=== PATIENT | male | born 2000 | race African-American/Black ===

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

== ENCOUNTER 2020-03-25 20:05 | Emergency (ER) | payer MEDICAID ==
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
[2020-03-25] MEDS ORDERED: HYDROCODONE/ACETAMINOPHEN 5-325 MG TABLET PO ONE (21:30)
[2020-03-25] MEDS ORDERED: LIDOCAINE 1%/EPINEPHRINE INJ 20 ML VIAL INJ ONE (21:30)
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
[2020-03-25] MEDS ORDERED: HYDROCODONE/ACETAMINOPHEN 5-325 MG (6 TAB/ER DISP) PO PRN (23:48)
[2020-03-26 00:18] VITALS: BP 144/100
== END 2020-03-26 00:18 | disposition home or self-care (01) ==
LOC: ER 20:05
DX: S01.112A Laceration without foreign body of left eyelid and periocular area, initial encounter (principal); Y04.0XXA Assault by unarmed brawl or fight, initial encounter; F12.10 Cannabis abuse, uncomplicated; K02.9 Dental caries, unspecified
CPT/HCPCS: 99284; 70486; 12013; J3490

== ENCOUNTER 2020-03-31 13:37 | Emergency (ER) | payer MEDICAID ==
[2020-03-31 13:57] VITALS: BP 139/62
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
== END 2020-03-31 15:09 | disposition home or self-care (01) ==
LOC: ER 13:37
DX: S01.111D Laceration without foreign body of right eyelid and periocular area, subsequent encounter (principal); X58.XXXD Exposure to other specified factors, subsequent encounter